=== PATIENT | male | born 1970 | race Caucasian/White ===

== ENCOUNTER 2018-06-29 03:07 | Emergency (ER) | payer BC ==
[2018-06-29] MEDS ORDERED: SODIUM CHLORIDE 0.9% 500 ML IV STA (03:23)
[2018-06-29] MEDS ORDERED: IPRATROPIUM-ALBUTEROL 3 ML NEB INHALATION STA (03:24)
[2018-06-29] MEDS ORDERED: LORazepam 2 MG/ML INJ IV STA (03:24)
--- NOTE | 2018-06-29 03:28 | ED ---
General Adult HPI - General Source: patient, RN notes reviewed Mode of arrival: wheelchair Limitations: no limitations <Victoriano Jett - Last Filed: 06/29/18 03:31> <Kristel Ramsey - Last Filed: 06/29/18 06:44> - General Chief complaint: Chest Pain Stated complaint: chest pain Time Seen by Provider: 06/29/18 03:16 - History of Present Illness Initial comments: This is a 48-year-old male presents emergency Department with multiple complaints. Patient states that since yesterday he's had some bodyaches, chest discomfort, abdominal pain and nausea. He states he just does not feel he comes usual self. States he feels very restless, anxious states he normally does not have any issues like this. He states he did have some chest pain along with abdominal discomfort. He does admit to some nausea with no vomiting diarrhea constipation. 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 States he normally has congestion but feels worsened usual he also has some shortness of breath. Patient states he's been having some hot and cold flashes with no known fever. Patient complains of diffuse body aches with no trauma or localized pain. Patient states he has a history of hypertension denies any prior cardiac disease or known hyperlipidemia or diabetes. (Victoriano Jett) - Related Data Home Medications Medication Instructions Recorded Confirmed No Known Home Medications 06/29/18 06/29/18 Allergies Allergy/AdvReac Type Severity Reaction Status Date / Time No Known Allergies Allergy Verified 06/29/18 03:25 Review of Systems ROS Other: All systems not noted in ROS Statement are negative. <Victoriano Jett - Last Filed: 06/29/18 03:31> ROS Other: All systems not noted in ROS Statement are negative. <Kristel Ramsey - Last Filed: 06/29/18 06:44> ROS Statement: Those systems with pertinent positive or pertinent negative responses have been documented in the HPI. Past Medical History Past Medical History: Hypertension Additional Past Medical History / Comment(s): nasal congestion History of Any Multi-Drug Resistant Organisms: None Reported Past Surgical History: No Surgical Hx Reported Past Psychological History: No Psychological Hx Reported Smoking Status: Never smoker Past Alcohol Use History: Occasional Past Drug Use History: None Reported <Dedoe,Victoriano M - Last Filed: 06/29/18 03:31> General Exam Limitations: no limitations General appearance: alert, in no apparent distress Head exam: Present: atraumatic, normocephalic, normal inspection Eye exam: Present: normal appearance, PERRL, EOMI. Absent: scleral icterus, conjunctival injection, periorbital swelling ENT exam: Present: normal exam, normal oropharynx, mucous membranes moist, TM's normal bilaterally, normal external ear exam Neck exam: Present: normal inspection, full ROM. Absent: tenderness, meningismus, lymphadenopathy Respiratory exam: Present: wheezes (faint). Absent: normal lung sounds bilaterally, respiratory distress, rales, rhonchi, stridor Cardiovascular Exam: Present: regular rate, normal rhythm, normal heart sounds. Absent: systolic murmur, diastolic murmur, rubs, gallop, clicks GI/Abdominal exam: Present: soft, normal bowel sounds. Absent: distended, tenderness, guarding, rebound, rigid Neurological exam: Present: alert, oriented X3, CN II-XII intact Skin exam: Present: warm, dry, intact, normal color. Absent: rash <Victoriano Jett M - Last Filed: 06/29/18 03:31> Vital Signs 06/29/18 06/29/18 06/29/18 03:13 04:05 04:11 Temperature 97.8 F 97.4 F L Pulse Rate 71 73 62 Respiratory 18 16 Rate Blood Pressure 162/98 162/107 O2 Sat by Pulse 98 100 Oximetry 06/29/18 06/29/18 06/29/18 04:22 04:58 06:12 Temperature 97.1 F L Pulse Rate 65 77 68 Respiratory 16 18 Rate Blood Pressure 165/83 164/100 O2 Sat by Pulse 100 100 Oximetry EKG Findings - EKG Comments: EKG Findings:: EKG performed at 3:16 normal sinus rhythm with rate of 67 VT 154 QRS 72 QT/QTC 414/[address] elevation of depression. <Victoriano Jett - Last Filed: 06/29/18 03:31> Medical Decision Making <Victoriano Jett - Last Filed: 06/29/18 03:31> - Lab Data Result diagrams: 06/29/18 04:05 06/29/18 04:05 <Kristel Ramsey P - Last Filed: 06/29/18 06:44> - Medical Decision Making The patient was initially seen and evaluated by JAYANT Pastrana, patient had presented with a generalized feeling of unwell, pain all over his body which was worse than his baseline chronic pain. Pain all over his body did include his chest, no exertional chest pain, no chest pain with diaphoresis lightheadedness or near -syncope. The patient just reports he has been having all over pain, subjective chills and sweats. I reviewed the EKG chest x-ray and labs. There are no acute findings. These results were discussed with the patient. Patient had received some Ativan as he was feeling very anxious but reported that this gave him a headache. Patient also received IV fluids which she reports minimal feel much better. I discussed with the patient options for being admitted to the observation unit for evaluation by cardiology, however patient port sees feeling much better doesn't feel this is necessary. He does have an established follow-up visit with a primary care physician for later this month. He will return for any acute worsening or development of severe chest pain, shortness of breath, palpitations, exertional chest pain or any new or concerning symptoms. At this time patient states that he feels that he is just getting the flu and would like a work note IV Toradol was ordered and the patient was discharged home in stable condition. A work note was provided so he had have 2 more days of rest. (Kristel Ramsey) - Lab Data Lab Results 06/29/18 06/29/18 06/29/18 Range/Units 04:05 04:05 04:05 WBC 8.0 (3.8-10.6) k/uL RBC 5.07 (4.30-5.90) m/uL Hgb 15.5 (13.0-17.5) gm/dL Hct 44.2 (39.0-53.0) % MCV 87.2 (80.0-100.0) fL MCH 30.6 (25.0-35.0) pg MCHC 35.1 (31.0-37.0) g/dL RDW 12.2 (11.5-15.5) % Plt Count 300 (150-450) k/uL Neutrophils % 60 % Lymphocytes % 28 % Monocytes % 6 % Eosinophils % 4 % Basophils % 1 % Neutrophils # 4.8 (1.3-7.7) k/uL Lymphocytes # 2.3 (1.0-4.8) k/uL Monocytes # 0.5 (0-1.0) k/uL Eosinophils # 0.3 (0-0.7) k/uL Basophils # 0.1 (0-0.2) k/uL PT (9.0-12.0) sec INR (<1.2) APTT (22.0-30.0) sec Sodium 141 (137-145) mmol/L Potassium 3.5 (3.5-5.1) mmol/L Chloride 105 (98-107) mmol/L Carbon Dioxide 24 (22-30) mmol/L Anion Gap 12 mmol/L BUN 14 (9-20) mg/dL Creatinine 0.90 (0.66-1.25) mg/dL Est GFR (CKD-EPI)AfAm >90 (>60 ml/min/1.73 sqM) Est GFR (CKD-EPI)NonAf >90 (>60 ml/min/1.73 sqM) Glucose 147 H (74-99) mg/dL Plasma Lactic Acid Kobi (0.7-2.0) mmol/L Calcium 9.3 (8.4-10.2) mg/dL Magnesium 2.0 (1.6-2.3) mg/dL Total Bilirubin 0.5 (0.2-1.3) mg/dL AST 21 (17-59) U/L ALT 29 (21-72) U/L Alkaline Phosphatase 76 (38-126) U/L Total Creatine Kinase 107 (55-170) U/L CK-MB (CK-2) 2.1 (0.0-2.4) ng/mL CK-MB (CK-2) Rel Index 2.0 Troponin I <0.012 (0.000-0.034) ng/mL Total Protein 7.2 (6.3-8.2) g/dL Albumin 4.2 (3.5-5.0) g/dL Lipase 96 (23-300) U/L 06/29/18 06/29/18 Range/Units 04:05 04:05 WBC (3.8-10.6) k/uL RBC (4.30-5.90) m/uL Hgb (13.0-17.5) gm/dL Hct (39.0-53.0) % MCV (80.0-100.0) fL MCH (25.0-35.0) pg MCHC (31.0-37.0) g/dL RDW (11.5-15.5) % Plt Count (150-450) k/uL Neutrophils % % Lymphocytes % % Monocytes % % Eosinophils % % Basophils % % Neutrophils # (1.3-7.7) k/uL Lymphocytes # (1.0-4.8) k/uL Monocytes # (0-1.0) k/uL Eosinophils # (0-0.7) k/uL Basophils # (0-0.2) k/uL PT 9.8 (9.0-12.0) sec INR 1.0 (<1.2) APTT 24.0 (22.0-30.0) sec Sodium (137-145) mmol/L Potassium (3.5-5.1) mmol/L Chloride (98-107) mmol/L Carbon Dioxide (22-30) mmol/L Anion Gap mmol/L BUN (9-20) mg/dL Creatinine (0.66-1.25) mg/dL Est GFR (CKD-EPI)AfAm (>60 ml/min/1.73 sqM) Est GFR (CKD-EPI)NonAf (>60 ml/min/1.73 sqM) Glucose (74-99) mg/dL Plasma Lactic Acid Kobi 1.8 (0.7-2.0) mmol/L Calcium (8.4-10.2) mg/dL Magnesium (1.6-2.3) mg/dL Total Bilirubin (0.2-1.3) mg/dL AST (17-59) U/L ALT (21-72) U/L Alkaline Phosphatase (38-126) U/L Total Creatine Kinase (55-170) U/L CK-MB (CK-2) (0.0-2.4) ng/mL CK-MB (CK-2) Rel Index Troponin I (0.000-0.034) ng/mL Total Protein (6.3-8.2) g/dL Albumin (3.5-5.0) g/dL Lipase (23-300) U/L Disposition <Victoriano Jett - Last Filed: 06/29/18 03:31> Is patient prescribed a controlled substance at d/c from ED?: No <Kristel Ramsey - Last Filed: 06/29/18 06:44> Clinical Impression: Malaise Disposition: HOME SELF-CARE Instructions: Musculoskeletal Pain (ED), Chest Pain (ED) Referrals: None,Stated [Primary Care Provider] - 1-2 days
[2018-06-29 04:22] LABS: Basophils # (A) 0.1 k/uL (0-0.2); Basophils % (A) 1 %; Eosinophils # (A) 0.3 k/uL (0-0.7); Eosinophils % (A) 4 %; HCT 44.2 % (39.0-53.0); HGB 15.5 gm/dL (13.0-17.5); Lymphocytes # (A) 2.3 k/uL (1.0-4.8); Lymphocytes % (A) 28 %; MCH 30.6 pg (25.0-35.0); MCHC 35.1 g/dL (31.0-37.0); MCV 87.2 fL (80.0-100.0); Mean Platelet Volume 6.6; Monocytes # (A) 0.5 k/uL (0-1.0); Monocytes % (A) 6 %; Neutrophils # (A) 4.8 k/uL (1.3-7.7); Neutrophils % (A) 60 %; Platelet Count 300 k/uL (150-450); RBC 5.07 m/uL (4.30-5.90); RDW 12.2 % (11.5-15.5)
[2018-06-29 04:30] LABS: ALT 29 U/L (21-72); AST 21 U/L (17-59); Albumin 4.2 g/dL (3.5-5.0); Alkaline Phosphatase 76 U/L (38-126); Anion Gap 12 mmol/L; Blood Urea Nitrogen 14 mg/dL (9-20); Calcium 9.3 mg/dL (8.4-10.2); Carbon Dioxide 24 mmol/L (22-30); Chloride 105 mmol/L (98-107); Glucose 147 mg/dL (74-99); Lipase 96 U/L (23-300); Potassium 3.5 mmol/L (3.5-5.1); Sodium 141 mmol/L (137-145); Total Bilirubin 0.5 mg/dL (0.2-1.3); Total Protein 7.2 g/dL (6.3-8.2)
[2018-06-29 04:32] LABS: Creatine Kinase 107 U/L (55-170)
--- NOTE | 2018-06-29 04:41 | XR ---
EXAM: XR Chest, 2 Views CLINICAL HISTORY: Chest Pain TECHNIQUE: Frontal and lateral views of the chest. COMPARISON: No relevant prior studies available. FINDINGS: Lungs: Unremarkable. No consolidation. Pleural space: Unremarkable. No pneumothorax. Heart: Unremarkable. No cardiomegaly. Mediastinum: Unremarkable. Bones/joints: No acute osseous abnormality. IMPRESSION: No acute cardiopulmonary process.
[2018-06-29 04:42] LABS: Prothrombin Time 9.8 sec (9.0-12.0)
[2018-06-29 04:45] LABS: Creatine Kinase MB 2.1 ng/mL (0.0-2.4); Troponin I <0.012 ng/mL (0.000-0.034)
[2018-06-29 06:14] VITALS: RESP 18; TEMP 97.1
[2018-06-29] MEDS ORDERED: KETOROLAC 30 MG/ML 1 ML VIAL IVP STA (06:38)
[2018-06-29 07:07] VITALS: BP 191/111; PULSE 69
== END 2018-06-29 07:00 | disposition home or self-care (01) ==
LOC: EC 03:07
DX: R53.81 Other malaise (principal); R06.2 Wheezing; G89.29 Other chronic pain; R68.83 Chills (without fever); R61 Generalized hyperhidrosis; R51 Headache; R11.0 Nausea; R10.9 Unspecified abdominal pain; R06.02 Shortness of breath; R09.81 Nasal congestion; R52 Pain, unspecified; Z91.048 Other nonmedicinal substance allergy status
CPT/HCPCS: 36415; 94640; 93005; 80053; 82550; 82553; 83605; 83690; 83735; 84484; 85025; 85610; 85730; 87040; 71046; 99285; 96374; 96375; 96361; J2060; J1885

== ENCOUNTER → 2019-03-01 | Outpatient (CLI) | payer BC ==
--- NOTE | 2019-03-02 07:16 | US ---
EXAMINATION TYPE: US scrotum with doppler. TECHNIQUE: Grayscale and color Doppler Duplex imaging performed of the scrotum. DATE OF EXAM: 03/01/2019 COMPARISON: NONE CLINICAL HISTORY: 49-year-old male N50.9 Disorder of male genital organs. Left testicle lump and pain x2 weeks. Patient hit groin area while moving furniture. Findings: EXAM MEASUREMENTS: TESTICLES: Right Testicle: 3.7 x 2.5 x 3.3 cm (volume of 16.1 mL) Left Testicle: 4.4 x 2.4 x 3.1 cm (volume of 17.1 mL) EPIDIDYMIS HEAD: Right Epididymis: 1.2 x 1.2 x 1.0 cm Left Epididymis: 1.1 x .5 x 1.0 cm. The body of the epididymis appears somewhat hypoechoi c and mildly thickened. This is asymmetric to the contralateral side and is seen deep to the testicle and multiple images. Doppler performed to assess for testicular vascularity; good superimposed arterial and venous flow se en on the right and good arterial flow demonstrated on the left. The testicles show normal homogeneou s appearance without previa. Presence of hydroceles: [id number] on the left Presence of varicoceles: No IMPRESSION: 1. Small to moderate left hydrocele. 2. No sonographic evidence for testicular torsion. No testicular injury identified. 3. Slight asymmetric thickening and hypoechoic appearance to the left epididymal body. This may corre spond to some normal variation. Correlate to exclude epididymitis. Consider short interval follow-up in 6-8 weeks to reassess.
== END ==
LOC: RADUSMAIN 17:41
PROVIDERS: ATTEND Family Medicine
DX: N50.9 Disorder of male genital organs, unspecified (principal); N43.3 Hydrocele, unspecified
CPT/HCPCS: 76870; 93975

== ENCOUNTER 2019-03-03 18:39 | Emergency (ER) | payer OTHER, BC ==
[2019-03-03] MEDS ORDERED: ONDANSETRON 4 MG/2 ML VIAL IVP STA ×2 (19:25→21:12)
[2019-03-03] MEDS ORDERED: HYDROmorphone 1 MG/ML 1 ML SYRINGE IVP STA (19:25)
[2019-03-03] MEDS ORDERED: DIPH,PERTUS(ACELL)TETVAC-LF 0.5 ML VIAL IM ONE (19:25)
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
[2019-03-03] MEDS ORDERED: KETOROLAC 60 MG/2 ML VIAL IVP STA (20:39)
[2019-03-03] MEDS ORDERED: LIDOCAINE 1% INJ 10MG/ML (20 ML MDV) SQ ONE (20:54)
[2019-03-03] MEDS ORDERED: TOPICAL SKIN ADHESIVE 1 EACH AMP TOPICAL ONE (21:22)
[2019-03-03] MEDS ORDERED: IBUPROFEN 600 MG STARTER PACK 4 TAB BTL PO STA (22:15)
[2019-03-03] MEDS ORDERED: ACET/COD 300 MG/30 MG STARTER PACK 6 TAB BTL PO STA (22:15)
[2019-03-03 22:37] VITALS: BP 126/83; PULSE 82; RESP 18; TEMP 98
== END 2019-03-03 22:37 | disposition home or self-care (01) ==
LOC: EC 18:39
DX: S01.312A Laceration without foreign body of left ear, initial encounter (principal); R07.81 Pleurodynia; M54.6 Pain in thoracic spine; I10 Essential (primary) hypertension; Z23 Encounter for immunization; Z79.899 Other long term (current) drug therapy; V48.5XXA Car driver injured in noncollision transport accident in traffic accident, initial encounter; Y92.410 Unspecified street and highway as the place of occurrence of the external cause
CPT/HCPCS: 99285; 12015; 90471; 96365; 96375 ×3; 96376; 72125; 70486; 70450; 71260; 74177; 90715; J2405; J0690; J2001; J1885; J1170; Q9967

== ENCOUNTER 2019-07-05 13:21 | Observation (INO) | payer BC, OTHER ==
[2019-07-05] MEDS ORDERED: ACETAMINOPHEN TAB 325 MG TAB PO STA (13:48)
[2019-07-05] MEDS ORDERED: KETOROLAC 30 MG/ML 1 ML VIAL IVP STA (13:49)
[2019-07-05] MEDS ORDERED: SODIUM CHLORIDE 0.9% 1,000 ML IV ONE (13:49)
[2019-07-05] MEDS ORDERED: CLINDAMYCIN 600 MG in DEXTROSE 5% IN WATER 50 ML IVPB STA ×2 (13:50)
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
[2019-07-05 14:23] LABS: Albumin 4.4 g/dL (3.5-5.0); Calcium 9.5 mg/dL (8.4-10.2); Potassium 4.6 mmol/L (3.5-5.1); Total Bilirubin 0.4 mg/dL (0.2-1.3); Total Protein 7.4 g/dL (6.3-8.2)
[2019-07-05 14:24] LABS: Basophils # (A) 0.1 k/uL (0-0.2); Basophils % (A) 1 %; Eosinophils # (A) 0.4 k/uL (0-0.7); Eosinophils % (A) 3 %; HCT 43.3 % (39.0-53.0); Lymphocytes # (A) 2.7 k/uL (1.0-4.8); Lymphocytes % (A) 20 %; MCH 31.3 pg (25.0-35.0); MCHC 34.7 g/dL (31.0-37.0); MCV 90.3 fL (80.0-100.0); Mean Platelet Volume 6.4; Monocytes # (A) 0.9 k/uL (0-1.0); Monocytes % (A) 6 %; Neutrophils # (A) 9.4 k/uL (1.3-7.7); Neutrophils % (A) 68 %; Platelet Count 401 k/uL (150-450); RDW 12.1 % (11.5-15.5); WBC 13.8 k/uL (3.8-10.6)
[2019-07-05] MEDS ORDERED: VANCOMYCIN IV PER PHARMACY 1 EACH MISC MISCELLANE PRN (14:27)
[2019-07-05] MEDS ORDERED: VANCOMYCIN 1,500 MG in SODIUM CHLORIDE 0.9% 250 ML IVPB STA (14:32)
[2019-07-05] MEDS ORDERED: ACETAMINOPHEN TAB 325 MG TAB PO PRN (14:44)
[2019-07-05] MEDS ORDERED: ONDANSETRON 4 MG/2 ML VIAL IVP PRN (14:44)
[2019-07-05] MEDS ORDERED: IBUPROFEN 400 MG TAB PO PRN (14:44)
[2019-07-05] MEDS ORDERED: KETOROLAC 30 MG/ML 1 ML VIAL IVP PRN (14:44)
[2019-07-05] MEDS ORDERED: NALOXONE 0.4 MG/ML 1 ML VIAL IV PRN (14:44)
[2019-07-05] MEDS: oxyCODONE-APAP 5-325MG 1 EACH TAB PO PRN ×2 (15:36→19:49)
[2019-07-05] MEDS: SODIUM CHLORIDE 0.9% 1,000 ML IV SCH ×2 (16:10→23:46)
[2019-07-05] MEDS: INSULIN ASPART (NovoLOG) 100 UNIT/ML VIAL SQ SCH ×2 (16:57→20:51)
[2019-07-05 17:01] LABS: Glucose,Whole Blood 149 mg/dL (75-99)
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
[2019-07-05] MEDS: BACLOFEN 10 MG TAB PO SCH (20:45)
[2019-07-05] MEDS: LISINOPRIL 20 MG TAB PO SCH (20:45)
[2019-07-05] MEDS: GABAPENTIN 100 MG CAP PO SCH (20:45)
[2019-07-05] MEDS: amLODIPine 10 MG TAB PO SCH (20:45)
[2019-07-05 20:57] LABS: Glucose,Whole Blood 161 mg/dL (75-99)
[2019-07-05] MEDS ORDERED: VANCOMYCIN 1,500 MG in SODIUM CHLORIDE 0.9% 250 ML IVPB SCH (21:00)
[2019-07-06] MEDS ORDERED: VANCOMYCIN 1,500 MG in SODIUM CHLORIDE 0.9% 250 ML IVPB SCH (04:00)
[2019-07-06 04:58] LABS: Hemoglobin A1C 6.2 % (4.0-6.0)
[2019-07-06] MEDS: oxyCODONE-APAP 5-325MG 1 EACH TAB PO PRN ×5 (05:25→20:44)
[2019-07-06 07:31] LABS: Glucose,Whole Blood 110 mg/dL (75-99)
[2019-07-06 08:03] LABS: Basophils # (A) 0.1 k/uL (0-0.2); Basophils % (A) 1 %; Eosinophils # (A) 0.6 k/uL (0-0.7); Eosinophils % (A) 5 %; HCT 40.7 % (39.0-53.0); HGB 13.4 gm/dL (13.0-17.5); Lymphocytes # (A) 3.1 k/uL (1.0-4.8); Lymphocytes % (A) 30 %; MCH 30.2 pg (25.0-35.0); MCV 91.5 fL (80.0-100.0); Mean Platelet Volume 6.1; Monocytes # (A) 0.6 k/uL (0-1.0); Monocytes % (A) 6 %; Neutrophils # (A) 5.9 k/uL (1.3-7.7); Neutrophils % (A) 57 %; Platelet Count 323 k/uL (150-450); RBC 4.45 m/uL (4.30-5.90); WBC 10.3 k/uL (3.8-10.6)
[2019-07-06 08:20] LABS: African American GFR (CKD) >90 (>60 ml/min/1.73 sqM); Anion Gap 8 mmol/L; Blood Urea Nitrogen 19 mg/dL (9-20); Calcium 8.7 mg/dL (8.4-10.2); Carbon Dioxide 24 mmol/L (22-30); Chloride 105 mmol/L (98-107); Glucose 109 mg/dL (74-99); Potassium 5.3 mmol/L (3.5-5.1); Sodium 137 mmol/L (137-145)
[2019-07-06] MEDS: INSULIN ASPART (NovoLOG) 100 UNIT/ML VIAL SQ SCH ×4 (08:35→21:34)
[2019-07-06] MEDS ORDERED: DEXAMETHASONE 4 MG TAB PO SCH (09:00)
[2019-07-06] MEDS ORDERED: PANTOPRAZOLE 40 MG/10 ML VIAL IV SCH (09:00)
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
[2019-07-06] MEDS: LACTOBACILLUS ACIDOPH & BULGAR 1 EACH PACKET PO SCH (09:19)
[2019-07-06] MEDS: CHOLESTYRAMINE (WITH SUGAR) 4 GM PACKET PO SCH ×2 (09:19→16:59)
[2019-07-06 10:48] VITALS: BMI 27.9
[2019-07-06] MEDS: SODIUM CHLORIDE 0.9% 1,000 ML IV SCH ×2 (11:55→20:43)
[2019-07-06 12:15] LABS: Glucose,Whole Blood 137 mg/dL (75-99)
[2019-07-06] MEDS: MULTIVITAMINS, THERA 1 EACH TAB PO SCH (13:05)
[2019-07-06] MEDS: VANCOMYCIN 1,500 MG in SODIUM CHLORIDE 0.9% 250 ML IVPB SCH ×2 (13:06→20:41)
--- NOTE | 2019-07-06 15:27 | P.GSCN ---
History of Present Illness Consult date: 07/06/19 Reason for Consult: Possible incision and drainage History of present illness: The patient is a 49-year-old man who developed painful swelling along the back of his neck and head. He was seen in the office last week and an incision and drainage was done and he was started on antibiotic. He was feeling somewhat better Thursday. The patient states he was called and told that this was MRSA. He noticed increased pain and swelling this week. He had some "legal things "he had to attend to so he came to the emergency department last night and was admitted. Denies any prior history of MRSA. He thinks it may not be quite as swollen as it was when he was admitted Review of Systems All systems: negative Past Medical History Past Medical History: GERD/Reflux, Hypertension Additional Past Medical History / Comment(s): chronic lower back pain, migraines, R great toe inflammed joint/painful/limited ROM. History of Any Multi-Drug Resistant Organisms: MRSA Year Discovered:: 2019 MDRO Source:: neck Past Surgical History: No Surgical Hx Reported Additional Past Surgical History / Comment(s): Open L knee surgery, L knee arthroscopy, bowel surgery at the age of 3 months, wisdom teeth extraction, vasectomy. Past Anesthesia/Blood Transfusion Reactions: No Reported Reaction Smoking Status: Former smoker Additional Past Alcohol Use History / Comment(s): The patient is a nonsmoker. He denies any illicit drug use. He drinks alcohol occasionally. He lives with his fianc and her daughter. There is a dog in the home. He denies any recent travel. No service. - Past Family History Father Family Medical History: Hyperlipidemia, Hypertension Mother Family Medical History: Cancer Additional Family Medical History / Comment(s): Uterine cancer. Mother is . Medications and Allergies Home Medications Medication Instructions Recorded Confirmed Type Baclofen 10 mg PO HS 03/03/19 07/05/19 History Lisinopril 20 mg PO HS 03/03/19 07/05/19 History amLODIPine [Norvasc] 10 mg PO HS 03/03/19 07/05/19 History Clindamycin HCl [Cleocin] 450 mg PO Q8H 07/05/19 07/05/19 History Dexamethasone [Hexadrol] 4 mg PO DAILY 07/05/19 07/05/19 History Gabapentin [Neurontin] 100 mg PO HS 07/05/19 07/05/19 History Allergies Allergy/AdvReac Type Severity Reaction Status Date / Time bee venom protein (honey bee) Allergy Anaphylaxis Verified 07/05/19 14:02 Surgical - Exam Osteopathic Statement: *. No significant issues noted on an osteopathic structural exam other than those noted in the History and Physical/Consult. Vital Signs Temp Pulse Resp BP Pulse Ox 98.5 F 98 18 133/82 97 07/05/19 13:24 07/05/19 13:24 07/05/19 13:24 07/05/19 13:24 07/05/19 13:24 - General well developed, well nourished, no distress - Eyes normal ocular movement - Integumentary On the occiput and upper neck there are several areas of cutaneous edema and mild erythema, these are 2 cm or smaller in size. There is a punctate area at the level of the hairline from previous incision and drainage. No fluctuance. No obvious areas of undrained abscess Results - Labs 07/06/19 07:23 07/06/19 07:23 Abnormal Lab Results - Last 24 Hours (Table) 07/05/19 07/05/19 07/05/19 Range/Units 13:56 16:52 20:06 Potassium (3.5-5.1) mmol/L Glucose (74-99) mg/dL POC Glucose (mg/dL) 149 H 161 H (75-99) mg/dL Hemoglobin A1c 6.2 H (4.0-6.0) % 07/06/19 07/06/19 07/06/19 Range/Units 07:17 07:23 12:00 Potassium 5.3 H (3.5-5.1) mmol/L Glucose 109 H (74-99) mg/dL POC Glucose (mg/dL) 110 H 137 H (75-99) mg/dL Hemoglobin A1c (4.0-6.0) % Microbiology - Last 24 Hours (Table) 07/05/19 13:56 Gram Stain - Preliminary Neck Wound Culture - Preliminary Presumptive MRSA Diabetes panel 07/05/19 07/06/19 Range/Units 13:56 07:23 Sodium 137 (137-145) mmol/L Potassium 5.3 H (3.5-5.1) mmol/L Chloride 105 (98-107) mmol/L Carbon Dioxide 24 (22-30) mmol/L BUN 19 (9-20) mg/dL Creatinine 0.88 (0.66-1.25) mg/dL Glucose 109 H (74-99) mg/dL Hemoglobin A1c 6.2 H (4.0-6.0) % Calcium 8.7 (8.4-10.2) mg/dL Calcium panel 07/06/19 Range/Units 07:23 Calcium 8.7 (8.4-10.2) mg/dL Pituitary panel 07/06/19 Range/Units 07:23 Sodium 137 (137-145) mmol/L Potassium 5.3 H (3.5-5.1) mmol/L Chloride 105 (98-107) mmol/L Carbon Dioxide 24 (22-30) mmol/L BUN 19 (9-20) mg/dL Creatinine 0.88 (0.66-1.25) mg/dL Glucose 109 H (74-99) mg/dL Calcium 8.7 (8.4-10.2) mg/dL Adrenal panel 07/06/19 Range/Units 07:23 Sodium 137 (137-145) mmol/L Potassium 5.3 H (3.5-5.1) mmol/L Chloride 105 (98-107) mmol/L Carbon Dioxide 24 (22-30) mmol/L BUN 19 (9-20) mg/dL Creatinine 0.88 (0.66-1.25) mg/dL Glucose 109 H (74-99) mg/dL Calcium 8.7 (8.4-10.2) mg/dL Assessment and Plan (1) Failure of outpatient treatment Current Visit: Yes Status: Acute Code(s): Z78.9 - OTHER SPECIFIED HEALTH STATUS SNOMED Code(s): 545804633 (2) MRSA (methicillin resistant staph aureus) culture positive Current Visit: Yes Status: Acute Code(s): Z22.322 - CARRIER OR SUSPECTED CARRIER OF METHICILLIN RESIS STAPH SNOMED Code(s): 317006375 Plan: Currently there are no undrained abscesses. Continue medical care. Call me if there are any wound changes concerning for recurrent abscess.
--- NOTE | 2019-07-06 16:12 | PN ---
PROGRESS NOTE DATE OF SERVICE: 07/06/2019. This 49-year-old gentleman who was admitted with multiple subcutaneous abscesses is being closely monitored. Infectious Disease has been consulted. No chest pain. No palpitations. No fever. On exam, alert and oriented x3. Pulse is 57, blood pressure 130/74, respiration 18, temperature 97.8, pulse ox 98% on room air. HEENT: Conjunctivae normal. NECK: No jugular venous distention. CARDIOVASCULAR SYSTEM: S1, S2 muffled. RESPIRATORY SYSTEM: Breath sounds diminished at the bases. No rhonchi. No crackles. ABDOMEN: Soft, non-tender. LEGS: No edema. No swelling. NERVOUS SYSTEM: No focal deficit. EXAMINATION OF THE BACK: Multiple abscesses not draining are present. LABS: Accu-Cheks 110, 137. Hemoglobin A1c is 6.2. ASSESSMENT: 1. Multiple subcutaneous abscesses in the neck and scalp with possible methicillin- resistant Staphylococcus aeruginosa with failure of outpatient treatment. 2. Increased white count. 3. Increased random blood sugar with no evidence of diabetes mellitus, type 2. 4. Gastroesophageal reflux disease. 5. Hypertension. 6. Chronic back pain. 7. History of migraine. 8. History of methicillin-resistant Staphylococcus aeruginosa. 9. History of anxiety. 10.Remote history of nicotine dependence. RECOMMENDATIONS AND DISCUSSION: At this time I recommend to continue current medications, continue with the monitoring, symptomatic treatment. Continue with the vancomycin. Await cultures. Closely follow with infectious Disease. Guarded prognosis. Further recommendations to follow. MMODL / IJN: [id number] /
[2019-07-06 16:39] LABS: Glucose,Whole Blood 117 mg/dL (75-99)
[2019-07-06] MEDS: GABAPENTIN 100 MG CAP PO SCH (20:42)
[2019-07-06] MEDS: LISINOPRIL 20 MG TAB PO SCH (20:42)
[2019-07-06] MEDS: BACLOFEN 10 MG TAB PO SCH (20:42)
[2019-07-06] MEDS: amLODIPine 10 MG TAB PO SCH (20:42)
[2019-07-06 20:44] LABS: Glucose,Whole Blood 152 mg/dL (75-99)
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
[2019-07-07] MEDS: oxyCODONE-APAP 5-325MG 1 EACH TAB PO PRN ×3 (01:58→11:18)
[2019-07-07] MEDS: VANCOMYCIN 1,500 MG in SODIUM CHLORIDE 0.9% 250 ML IVPB SCH ×2 (04:27→11:09)
[2019-07-07] MEDS: SODIUM CHLORIDE 0.9% 1,000 ML IV SCH (06:28)
[2019-07-07] MEDS: INSULIN ASPART (NovoLOG) 100 UNIT/ML VIAL SQ SCH ×2 (07:18→11:57)
[2019-07-07 07:29] LABS: Basophils # (A) 0.1 k/uL (0-0.2); Basophils % (A) 1 %; Eosinophils # (A) 0.5 k/uL (0-0.7); Eosinophils % (A) 6 %; HCT 37.3 % (39.0-53.0); HGB 12.4 gm/dL (13.0-17.5); Lymphocytes # (A) 2.5 k/uL (1.0-4.8); Lymphocytes % (A) 30 %; MCH 30.2 pg (25.0-35.0); MCHC 33.3 g/dL (31.0-37.0); MCV 90.8 fL (80.0-100.0); Mean Platelet Volume 6.3; Monocytes # (A) 0.4 k/uL (0-1.0); Monocytes % (A) 5 %; Neutrophils # (A) 4.8 k/uL (1.3-7.7); Neutrophils % (A) 58 %; Platelet Count 330 k/uL (150-450); RBC 4.11 m/uL (4.30-5.90); WBC 8.3 k/uL (3.8-10.6)
[2019-07-07] MEDS ORDERED: PANTOPRAZOLE 40 MG TABLET PO SCH (07:30)
[2019-07-07 07:33] LABS: Glucose,Whole Blood 105 mg/dL (75-99)
[2019-07-07] MEDS: MULTIVITAMINS, THERA 1 EACH TAB PO SCH (07:36)
[2019-07-07] MEDS: LACTOBACILLUS ACIDOPH & BULGAR 1 EACH PACKET PO SCH (07:37)
[2019-07-07] MEDS: CHOLESTYRAMINE (WITH SUGAR) 4 GM PACKET PO SCH (07:37)
[2019-07-07 09:00] LABS: African American GFR (CKD) >90 (>60 ml/min/1.73 sqM); Anion Gap 9 mmol/L; Blood Urea Nitrogen 15 mg/dL (9-20); Carbon Dioxide 26 mmol/L (22-30); Chloride 103 mmol/L (98-107); Glucose 91 mg/dL (74-99); Potassium 4.8 mmol/L (3.5-5.1); Sodium 138 mmol/L (137-145)
[2019-07-07] MEDS ORDERED: VANCOMYCIN TROUGH DUE 1 EACH MISC MISCELLANE ONE (11:00)
[2019-07-07 11:53] LABS: Glucose,Whole Blood 126 mg/dL (75-99)
[2019-07-07 12:28] VITALS: BP 132/76; PULSE 67; RESP 20; TEMP 98.4
--- NOTE | 2019-07-07 22:26 | DS ---
DISCHARGE SUMMARY FINAL DIAGNOSES: 1. Multiple subcutaneous abscesses of the neck and scalp with possible methicillin- resistant Staphylococcus aeruginosa with failure of outpatient treatment. 2. Increased white count. 3. Increased random blood sugar with no evidence of diabetes mellitus, type 2. 4. Gastroesophageal reflux disease. 5. Hypertension. 6. Chronic back pain. 7. History of migraine. 8. History of methicillin-resistant Staphylococcus aeruginosa. 9. History of anxiety. 10.Remote history of nicotine dependence. DISCHARGE DISPOSITION: The patient will be discharged in stable condition with guarded prognosis. HISTORY OF PRESENT ILLNESS: This 49-year-old gentleman with a past medical history of multiple medical problems was admitted with multiple subcutaneous abscesses. MRSA was grown from the culture. Patient was treated with vancomycin. The patient is keen on going home, so the patient will be discharged in stable condition with guarded prognosis. On exam, vitals are stable. CARDIOVASCULAR SYSTEM: S1, S2 muffled. ABDOMEN: Soft. NERVOUS SYSTEM: No focal deficit. EXAMINATION OF THE NECK: Minimal abscess present. No drainage. Some minimal erythema also present, much improved. DISCHARGE ADVICE AND MEDICATIONS: 1. Diet is cardiac. 2. Activity limited until followup. 3. Follow up with Dr. Pedraza in 2-3 days. 4. Follow with Infectious Disease as recommended. 5. Baclofen 10 mg at bedtime. 6. Lisinopril 20 mg at bedtime. 7. Neurontin 100 mg at bedtime. 8. Norvasc 10 mg at bedtime. 9. Bactrim DS 1 p.o. b.i.d. 10.Tylenol 650 q.6 p.r.n. Once again, the patient is discharged in stable condition with a guarded prognosis. MMODL / IJN: [id number] /
[2019-07-08] MEDS ORDERED: VANCOMYCIN 1,500 MG in SODIUM CHLORIDE 0.9% 250 ML IVPB SCH (06:00)
== END 2019-07-07 13:24 | disposition home or self-care (01) ==
LOC: EC 13:21 → 4MS4W 14:36
PROVIDERS: ADMIT Hospitalist; ATTEND Hospitalist
DX: L02.811 Cutaneous abscess of head [any part, except face] (principal); B95.62 Methicillin resistant Staphylococcus aureus infection as the cause of diseases classified elsewhere; I10 Essential (primary) hypertension; G89.29 Other chronic pain; M54.5 Low back pain; K21.9 Gastro-esophageal reflux disease without esophagitis; G43.909 Migraine, unspecified, not intractable, without status migrainosus; F41.9 Anxiety disorder, unspecified; Z79.899 Other long term (current) drug therapy; Z91.030 Bee allergy status; Z87.891 Personal history of nicotine dependence; Z86.14 Personal history of Methicillin resistant Staphylococcus aureus infection; Z82.49 Family history of ischemic heart disease and other diseases of the circulatory system; Z83.49 Family history of other endocrine, nutritional and metabolic diseases; Z80.49 Family history of malignant neoplasm of other genital organs
CPT/HCPCS: 96361 ×4; 96366 ×3; 96367; 96375 ×2; 96365; 99284; 36415; 80053; 80048 ×2; 85025 ×3; 80202; 87040; 87070; 87205; 87077; 87186; 83036; G0378 ×3; J3370 ×3; J1885; C9113

== ENCOUNTER 2022-03-18 14:59 | Emergency (ER) | payer BC ==
[2022-03-18 15:40] VITALS: TEMP 98.1
[2022-03-18] MEDS ORDERED: SODIUM CHLORIDE 0.9% 1,000 ML IV STA (17:54)
[2022-03-18] MEDS ORDERED: ONDANSETRON 4 MG/2 ML VIAL IVP STA (17:54)
[2022-03-18] MEDS ORDERED: MAG HYDROX/AL HYDROX/SIMETH 30 ML, HYOSCYAMINE ELIXIR 10 ML, LIDOCAINE VISCOUS 2% 10 ML PO STA ×3 (17:56)
--- NOTE | 2022-03-18 18:00 | ED ---
General Adult HPI - General Chief complaint: Nausea/Vomiting/Diarrhea Stated complaint: Active Mrsa/Vomiting for a week Time Seen by Provider: 03/18/22 17:55 Source: patient, RN notes reviewed, old records reviewed Mode of arrival: ambulatory Limitations: no limitations - History of Present Illness Initial comments: 52-year-old male patient presents to the emergency room with complaints of nausea and vomiting for one week after starting Bactrim. Patient states he was diagnosed with a skin infection on his left buttock and is being treated with Bactrim since Thursday by his primary care doctor. Patient has developed nausea and vomiting, denies diarrhea or fevers. Patient states that Bactrim is making GERD symptoms worse. Did buy [id number] Zantac with no relief -: days(s) (7) Associated Symptoms: loss of appetite, malaise, nausea/vomiting, shortness of breath, other (GERD) Treatments Prior to Arrival: other (bactrim) - Related Data Home Medications Medication Instructions Recorded Confirmed amLODIPine [Norvasc] 10 mg PO HS 03/03/19 03/18/22 lisinopriL 20 mg PO HS 03/03/19 03/18/22 Previous Rx's Medication Instructions Recorded Sulfamethox-Tmp 800-160Mg [Bactrim 1 tab PO Q12HR #14 tab 07/07/19 DS 800-160 mg] Allergies Allergy/AdvReac Type Severity Reaction Status Date / Time bee venom protein (honey bee) Allergy Anaphylaxis Verified 03/18/22 18:36 Review of Systems ROS Statement: Those systems with pertinent positive or pertinent negative responses have been documented in the HPI. ROS Other: All systems not noted in ROS Statement are negative. Past Medical History Past Medical History: GERD/Reflux, Hypertension Additional Past Medical History / Comment(s): chronic lower back pain, migraines, R great toe inflammed joint/painful/limited ROM. History of Any Multi-Drug Resistant Organisms: MRSA Date of last positivie culture/infection: 03/11/2022 MDRO Source:: back Past Surgical History: No Surgical Hx Reported Additional Past Surgical History / Comment(s): Open L knee surgery, L knee arthroscopy, bowel surgery at the age of 3 months, wisdom teeth extraction, vasectomy. Past Anesthesia/Blood Transfusion Reactions: No Reported Reaction Past Psychological History: Anxiety Smoking Status: Never smoker Past Alcohol Use History: Occasional Past Drug Use History: None Reported - Past Family History Father Family Medical History: Hyperlipidemia, Hypertension Mother Family Medical History: Cancer Additional Family Medical History / Comment(s): Uterine cancer. Mother is . General Exam Limitations: no limitations General appearance: alert, in no apparent distress Head exam: Present: atraumatic ENT exam: Present: normal oropharynx, mucous membranes moist Neck exam: Present: normal inspection, full ROM. Absent: tenderness, meningismus Respiratory exam: Present: normal lung sounds bilaterally. Absent: respiratory distress, accessory muscle use Cardiovascular Exam: Present: regular rate GI/Abdominal exam: Present: soft. Absent: distended, tenderness Extremities exam: Present: normal capillary refill Neurological exam: Present: alert, oriented X3 Psychiatric exam: Present: normal affect, normal mood Skin exam: Present: warm, dry, other (multiple dried scaled lesions on left buttock) Course Vital Signs 03/18/22 03/18/22 15:35 20:46 Temperature 98.1 F Pulse Rate 83 81 Respiratory 18 16 Rate Blood Pressure 157/91 155/90 O2 Sat by Pulse 97 97 Oximetry Medical Decision Making - Medical Decision Making Patient presents with nausea and abdominal pain after starting Bactrim for MRSA infection on his left buttock last Thursday. Labs were drawn and unremarkable. Creatinine slightly elevated likely due to Bactrim. Influenza coronavirus swabs are negative. Patient is feeling better after Zofran and IV fluids and a GI cocktail. Patient was educated on side effects of Bactrim including upset stomach. He was encouraged to eat or drink milk when taking Bactrim. Follow up with his primary doctor next week. Return to the emergency room with a persistent nausea vomitin g or increased abdominal pain fevers. Case discussed with Dr. Alejandro. - Lab Data Result diagrams: 03/18/22 18:30 03/18/22 18:30 Lab Results 03/18/22 03/18/22 03/18/22 Range/Units 18:30 18:30 18:54 WBC 8.8 (3.8-10.6) k/uL RBC 4.85 (4.30-5.90) m/uL Hgb 14.2 (13.0-17.5) gm/dL Hct 43.8 (39.0-53.0) % MCV 90.2 (80.0-100.0) fL MCH 29.2 (25.0-35.0) pg MCHC 32.4 (31.0-37.0) g/dL RDW 11.5 (11.5-15.5) % Plt Count 477 H (150-450) k/uL MPV 6.6 Neutrophils % 65 % Lymphocytes % 24 % Monocytes % 5 % Eosinophils % 3 % Basophils % 2 % Neutrophils # 5.7 (1.3-7.7) k/uL Lymphocytes # 2.1 (1.0-4.8) k/uL Monocytes # 0.5 (0-1.0) k/uL Eosinophils # 0.2 (0-0.7) k/uL Basophils # 0.1 (0-0.2) k/uL Sodium 138 (137-145) mmol/L Potassium 5.0 (3.5-5.1) mmol/L Chloride 100 (98-107) mmol/L Carbon Dioxide 26 (22-30) mmol/L Anion Gap 12 mmol/L BUN 16 (9-20) mg/dL Creatinine 1.29 H (0.66-1.25) mg/dL Est GFR (CKD-EPI)AfAm 73 (>60 ml/min/1.73 sqM) Est GFR (CKD-EPI)NonAf 63 (>60 ml/min/1.73 sqM) Glucose 136 H (74-99) mg/dL Calcium 10.2 (8.4-10.2) mg/dL Total Bilirubin 0.4 (0.2-1.3) mg/dL AST 27 (17-59) U/L ALT 29 (4-49) U/L Alkaline Phosphatase 102 (38-126) U/L Total Protein 8.3 H (6.3-8.2) g/dL Albumin 5.1 H (3.5-5.0) g/dL Coronavirus (PCR) Not Detected (Not Detectd) Influenza Type A RNA (Not Detectd) Influenza Type B (PCR) (Not Detectd) 03/18/22 Range/Units 18:54 WBC (3.8-10.6) k/uL RBC (4.30-5.90) m/uL Hgb (13.0-17.5) gm/dL Hct (39.0-53.0) % MCV (80.0-100.0) fL MCH (25.0-35.0) pg MCHC (31.0-37.0) g/dL RDW (11.5-15.5) % Plt Count (150-450) k/uL MPV Neutrophils % % Lymphocytes % % Monocytes % % Eosinophils % % Basophils % % Neutrophils # (1.3-7.7) k/uL Lymphocytes # (1.0-4.8) k/uL Monocytes # (0-1.0) k/uL Eosinophils # (0-0.7) k/uL Basophils # (0-0.2) k/uL Sodium (137-145) mmol/L Potassium (3.5-5.1) mmol/L Chloride (98-107) mmol/L Carbon Dioxide (22-30) mmol/L Anion Gap mmol/L BUN (9-20) mg/dL Creatinine (0.66-1.25) mg/dL Est GFR (CKD-EPI)AfAm (>60 ml/min/1.73 sqM) Est GFR (CKD-EPI)NonAf (>60 ml/min/1.73 sqM) Glucose (74-99) mg/dL Calcium (8.4-10.2) mg/dL Total Bilirubin (0.2-1.3) mg/dL AST (17-59) U/L ALT (4-49) U/L Alkaline Phosphatase (38-126) U/L Total Protein (6.3-8.2) g/dL Albumin (3.5-5.0) g/dL Coronavirus (PCR) (Not Detectd) Influenza Type A RNA Not Detected (Not Detectd) Influenza Type B (PCR) Not Detected (Not Detectd) Disposition Clinical Impression: Nausea, Medication side effect Disposition: HOME SELF-CARE Condition: Good Instructions (If sedation given, give patient instructions): Acute Nausea and Vomiting (ED) Additional Instructions: Taking Bactrim with food and a large glass of water as prescribed. Finish antibiotics as previously prescribed by your doctor and follow-up with the primary care doctor this week. Return to the emergency room with any new or concerning symptoms including fevers or persistent vomiting. Is patient prescribed a controlled substance at d/c from ED?: No Referrals: Zhou Pedraza III, MD [Primary Care Provider] - 1-2 days Time of Disposition: 20:27
[2022-03-18 18:48] LABS: Basophils # (A) 0.1 k/uL (0-0.2); Basophils % (A) 2 %; Eosinophils # (A) 0.2 k/uL (0-0.7); Eosinophils % (A) 3 %; HCT 43.8 % (39.0-53.0); HGB 14.2 gm/dL (13.0-17.5); Lymphocytes # (A) 2.1 k/uL (1.0-4.8); Lymphocytes % (A) 24 %; MCH 29.2 pg (25.0-35.0); MCHC 32.4 g/dL (31.0-37.0); MCV 90.2 fL (80.0-100.0); Mean Platelet Volume 6.6; Monocytes # (A) 0.5 k/uL (0-1.0); Monocytes % (A) 5 %; Neutrophils # (A) 5.7 k/uL (1.3-7.7); Neutrophils % (A) 65 %; Platelet Count 477 k/uL (150-450); RBC 4.85 m/uL (4.30-5.90); RDW 11.5 % (11.5-15.5); WBC 8.8 k/uL (3.8-10.6)
[2022-03-18 19:10] LABS: Albumin 5.1 g/dL (3.5-5.0); Calcium 10.2 mg/dL (8.4-10.2); Total Bilirubin 0.4 mg/dL (0.2-1.3); Total Protein 8.3 g/dL (6.3-8.2)
[2022-03-18 20:48] VITALS: BP 155/90; PULSE 81; RESP 16
== END 2022-03-18 20:47 | disposition home or self-care (01) ==
LOC: EC 14:59
DX: T88.7XXA Unspecified adverse effect of drug or medicament, initial encounter (principal); Z20.822 Contact with and (suspected) exposure to COVID-19; Z91.030 Bee allergy status
CPT/HCPCS: 36415; 80053; 85025; 87502; 87635; 99284; 96374; 96361; J2405